=== PATIENT | female | born 1945 | race Caucasian/White ===

== ENCOUNTER 2016-05-09 10:15 | Emergency (ER) | payer OTHER ==
[~2016-05-09] VITALS: Ht 168.9 cm; Wt 84.0 kg
--- NOTE | 2016-05-09 10:39 | PD ---
HPI Chief Complaint: Hip Injury Time Seen by Provider: 10:39 Travel History International Travel<30 days: No Contact w/Intl Traveler<30days: No Traveled to known affect area: No History of Present Illness HPI 71-year-old female came to the emergency room brought by EMS after possibly dislocating her right hip. 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 She has a prosthetic hip and this morning she was at the edge of her bed sitting and bent down to reach for something when she felt the hip pop out. She has been in pain especially when she tries to move. She received 6 mg of morphine by paramedics. No history of head injury. She seems anxious and uncomfortable. PFSH Past Medical History Narrative Medical List of her past medical history as reviewed from the nursing note. Past Surgical History Hysterectomy: Yes Social History Tobacco Use: No Allergies-Medications (Allergen,Severity, Reaction): Coded Allergies: No Known Allergies (Unverified , 05/09/16) Comments No known drug allergies. Reported Meds & Prescriptions Reported Meds & Active Scripts Active Lortab (Hydrocodone-Acetaminophen) 5-325 Mg Tab 1 Tab PO Q6H PRN Reported Multi For Her 50+ (Multiple Vitamins W/ Minerals) 1 Cap Cap 1 Cap PO DAILY Naproxen Sodium 220 Mg Tab 440 Mg PO BID PRN Aspirin 81 Mg Chew 81 Mg CHEW DAILY Narrative Medication List of her past medical history as reviewed from the nursing note. Review of Systems Except as stated in HPI: all other systems reviewed are Neg Physical Exam Narrative GENERAL: Awake, alert, moderate distress, anxious, laying in prone position with the affected hip down. SKIN: Warm and dry. HEAD: Atraumatic. Normocephalic. EYES: Pupils equal and round. No scleral icterus. No injection or drainage. ENT: No nasal bleeding or discharge. Mucous membranes pink and moist. NECK: Trachea midline. No JVD. CARDIOVASCULAR: Regular rate and rhythm. No murmur appreciated. RESPIRATORY: No accessory muscle use. Clear to auscultation. Breath sounds equal bilaterally. GASTROINTESTINAL: Abdomen soft, non-tender, nondistended. Hepatic and splenic margins not palpable. MUSCULOSKELETAL: No obvious deformities. No clubbing. No cyanosis. No edema. Patient is able to move her toes and she is neurovascularly intact distally. I' m unable to examine the leg or the hip given the fact that she is in prone position and laying on that leg. NEUROLOGICAL: Awake and alert. No obvious cranial nerve deficits. Motor grossly within normal limits. Normal speech. PSYCHIATRIC: Appropriate mood and affect; insight and judgment normal. Data Data Last Documented VS Vital Signs Date Time Temp Pulse Resp B/P Pulse Ox O2 Delivery O2 Flow Rate FiO2 05/09/16 15:07 80 16 126/66 100 Room Air 05/09/16 12:59 3.00 05/09/16 10:41 98.0 Orders Morphine Inj (Morphine Inj) (05/09/16 11:00) Ondansetron Inj (Zofran Inj) (05/09/16 11:00) Hip, Uni(Ap&Lat) W Ap Pelvis (05/09/16 ) Propofol 200 Mg/20 Ml Inj (Diprivan 200 (05/09/16 12:00) Hip, Lat Only W Ap Pelvis (05/09/16 ) MDM Medical Decision Making Medical Screen Exam Complete: Yes Emergency Medical Condition: Yes Medical Record Reviewed: Yes Differential Diagnosis Hip dislocation, hip fracture Narrative Course 11:34 AM patient has been given 6 more milligrams of morphine. Awaiting for the x-ray. 1 PM I did the procedural sedation and the hip was reduced by Dr. Marie. Patient tolerated the procedure well. Please refer to his notes. Procedures Procedure Narrative After the risks and benefits were discussed the following procedure was performed: MODERATE SEDATION: The patient was placed on a personnel monitor and pulse oximetry. An ambu bag and suction was immediately available at bedside. The patient was monitored by the nurse. Oxygen saturation , heart rate and blood pressure were monitored. Procedural sedation was acheived using 140 mg of IV propofol. The patient was observed until awake and alert. Procedural Sedation time in attendance was 25 minutes. Diagnosis Primary Impression: Hip dislocation, right Qualified Code: S73.004A - Hip dislocation, right, initial encounter Referrals: David Felipe MD Additional Instructions: Please call the above-mentioned orthopedists for your recurrent hip dislocation or your own orthopedist. Keep the knee immobilizer on all the time except when taking shower. Please do not sex your hip as that may cause dislocation to walk her again. Med/Other Pt SpecificInfo: Prescription(s) given Scripts Hydrocodone-Acetaminophen (Lortab)5-325 Mg Tab1 Tab PO Q6H PRN (PAIN) #10 TAB Ref 0 Prov:Danni Beltran MD 05/09/16 Disposition: 01 DISCHARGE HOME Condition: Stable Danni Beltran MD May 09, 2016 10:39
[2016-05-09 10:41] VITALS: BP 130/67; PULSE 111; RESP 20; TEMP 98; O2SAT 97
[2016-05-09] MEDS ORDERED: MULTCAP2 PO (10:46)
[2016-05-09] MEDS ORDERED: ASPI81CH CHEW (10:46)
[2016-05-09] MEDS ORDERED: MEDI220T PO (10:46)
[2016-05-09] MEDS ORDERED: ONDANSETRON HCL 4 MG/2 ML VIAL IV PUSH ONE (11:00)
[2016-05-09] MEDS ORDERED: MORPHINE SULFATE 8 MG/ML INJ IV PUSH ONE (11:00)
--- NOTE | 2016-05-09 11:55 | RADRPT ---
EXAM DATE/TIME: 05/09/2016 11:39 [facility] COMPARISON: No previous studies available for comparison. INDICATIONS : Right hip pain, fall, possible dislocation. MEDICAL HISTORY : Dislocation of ight hip 4 times. SURGICAL HISTORY : Right hip replacement 2005. ENCOUNTER: Initial ACUITY: 1 day PAIN SCORE: 10/10 LOCATION: Right hip. FINDINGS: Multiple views of the right hip demonstrate complete dislocation of the femoral prosthesis anteriorly and superiorly with respect to the acetabular processes. No associated fracture. CONCLUSION: Complete dislocation of the right femoral prosthesis anteriorly and superiorly with respect to the ad jacent acetabulum. No associated fracture.. Ayesha Reyes MD on May 09, 2016 at 11:52 Board Certified Radiologist. This report was verified electronically.
[2016-05-09] MEDS ORDERED: PROPOFOL 200 MG/20 ML AMP IV ONE (12:00)
[2016-05-09 12:08] VITALS: BP 137/66; PULSE 94; RESP 18; O2SAT 98
[2016-05-09 12:56] VITALS: BP 137/66; PULSE 96; RESP 16; O2SAT 96
[2016-05-09 12:59] VITALS: O2SAT 100
[2016-05-09 13:00] VITALS: O2SAT 97
[2016-05-09] MEDS ORDERED: HYDR-3533 PO (13:02)
--- NOTE | 2016-05-09 13:19 | RADRPT ---
EXAM DATE/TIME: 05/09/2016 13:21 [facility] COMPARISON: HIP RIGHT (AP&LAT 2/3VWS) W AP PELVIS, May 09, 2016, 11:39. INDICATIONS : Post reducton right dislocated hip. MEDICAL HISTORY : Total right hip replacement. SURGICAL HISTORY : Total right hip replacement ENCOUNTER: Subsequent ACUITY: 1 day PAIN SCORE: 3/10 LOCATION: Right hip FINDINGS: Multiple AP views of the right hip are performed post reduction. The femoral prosthesis appears appro priately positioned with respect to the adjacent acetabular component. No evidence of fracture. Sever e degenerative changes seen within the left hip and lower lumbar spine. CONCLUSION: Status post reduction of the right femoral prosthesis. Ayesha Reyes MD on May 09, 2016 at 13:16 Board Certified Radiologist. This report was verified electronically.
[2016-05-09 15:07] VITALS: BP 126/66; PULSE 80; RESP 16; O2SAT 100
--- NOTE | 2016-05-18 09:47 | PD ---
Data Data Orders Morphine Inj (Morphine Inj) (05/09/16 11:00) Ondansetron Inj (Zofran Inj) (05/09/16 11:00) Hip, Uni(Ap&Lat) W Ap Pelvis (05/09/16 ) Propofol 200 Mg/20 Ml Inj (Diprivan 200 (05/09/16 12:00) Hip, Lat Only W Ap Pelvis (05/09/16 ) MDM Supervised Visit with LORRAINE: No Narrative Course Procedure note: Sedation was managed by Dr. Beltran. She asked me to perform reduction of right hip dislocation on this patient. I flexed the right hip into a 90 angle. I applied traction straight upwards while one of the emergency department technicians stabilized the pelvis. This maneuver reduce the right hip into its proper alignment. Postreduction right hip x-rays revealed good placement. I placed her in a right knee immobilizer. She tolerated this procedure well. Diagnosis Primary Impression: Hip dislocation, right Qualified Code: S73.004A - Hip dislocation, right, initial encounter Referrals: David Felipe MD Patient Instructions: General Instructions, Hip Dislocation (ED) Departure Forms: Tests/Procedures Additional Instruction: Please call the above-mentioned orthopedists for your recurrent hip dislocation or your own orthopedist. Keep the knee immobilizer on all the time except when taking shower. Please do not sex your hip as that may cause dislocation to walk her again. Scripts Hydrocodone-Acetaminophen (Lortab)5-325 Mg Tab1 Tab PO Q6H PRN (PAIN) #10 TAB Ref 0 Prov:Danni Beltran MD 05/09/16 Disposition: 01 DISCHARGE HOME Condition: Stable Dawood Wilkerson MD May 18, 2016 09:47
== END 2016-05-09 15:35 | disposition home or self-care (01) ==
LOC: NEPC 10:15
DX: M24.451 Recurrent dislocation, right hip (principal); Z96.641 Presence of right artificial hip joint; T84.020A Dislocation of internal right hip prosthesis, initial encounter
CPT/HCPCS: 27265; 73501; 73502; 96374; 96375; 99152; 99283; J2270; J2405